=== PATIENT | male | born 1980 | race Caucasian/White ===

== ENCOUNTER 2023-11-29 19:49 | Emergency (ER) | payer SELFPAY ==
[~2023-11-29] VITALS: Ht 167.6 cm; Wt 68.0 kg
[2023-11-29 19:59] VITALS: BP_SYST 144; PULSE 113; RESP 16; TEMP 97.6; O2SAT 100
[2023-11-29] MEDS ORDERED: MYCOLOG30 TP (20:02)
[2023-11-29 20:29] VITALS: BP_SYST 144; PULSE 113; RESP 16; TEMP 97.6; O2SAT 100
== END 2023-11-29 20:26 | disposition home or self-care (01) ==
LOC: SED 19:49
DX: B35.3 Tinea pedis (principal); R21 Rash and other nonspecific skin eruption; Z91.048 Other nonmedicinal substance allergy status; Z79.899 Other long term (current) drug therapy
CPT/HCPCS: 99283